=== PATIENT | male | born 1955 ===

== ENCOUNTER 2021-06-02 16:38 | Emergency (ER) | payer MEDICARE ==
[2021-06-02] MEDS ORDERED: SODIUM CHLORIDE 0.9% 500 ML 500 ML IV STA (16:57)
[2021-06-02 17:30] LABS: Basophils # (A) 0.1 k/uL (0-0.2); Basophils % (A) 1 %; Eosinophils # (A) 0.2 k/uL (0-0.7); Eosinophils % (A) 2 %; HCT 43.6 % (39.0-53.0); HGB 14.8 gm/dL (13.0-17.5); Lymphocytes # (A) 2.5 k/uL (1.0-4.8); Lymphocytes % (A) 24 %; MCH 32.8 pg (25.0-35.0); MCHC 34.1 g/dL (31.0-37.0); MCV 96.2 fL (80.0-100.0); Mean Platelet Volume 7.2; Monocytes # (A) 0.7 k/uL (0-1.0); Monocytes % (A) 7 %; Neutrophils # (A) 6.3 k/uL (1.3-7.7); Neutrophils % (A) 62 %; Platelet Count 223 k/uL (150-450); RBC 4.53 m/uL (4.30-5.90); RDW 12.1 % (11.5-15.5); WBC 10.2 k/uL (3.8-10.6)
--- NOTE | 2021-06-02 17:31 | ED ---
General Adult HPI - General Stated complaint: Possible Food Poison Time Seen by Provider: 06/02/21 16:52 Source: patient, family, EMS, RN notes reviewed, old records reviewed Limitations: language barrier - History of Present Illness Initial comments: 65-year-old male presenting with mushroom ingestion. This occurred approximately 4 hours prior to arrival. The history that I have at the time of presentation is that the patient was feeling dizzy and had eaten this mushroom 4 hours prior to arrival. This history was obtained from the paramedics. The mushroom had a white stalk and a brownish red. Patient does not speak [place] and the history is limited. He denies abdominal pain. Further history will be obtained when the daughters arrive. - Related Data Allergies Allergy/AdvReac Type Severity Reaction Status Date / Time No Known Allergies Allergy Verified 06/02/21 17:36 Review of Systems ROS Statement: Those systems with pertinent positive or pertinent negative responses have been documented in the HPI. ROS Other: All systems not noted in ROS Statement are negative. General Exam General appearance: alert, in no apparent distress Head exam: Present: atraumatic, normocephalic Eye exam: Present: normal appearance ENT exam: Present: normal exam, mucous membranes moist Neck exam: Present: normal inspection. Absent: tenderness Respiratory exam: Present: normal lung sounds bilaterally. Absent: respiratory distress, wheezes, rales Cardiovascular Exam: Present: regular rate, normal rhythm GI/Abdominal exam: Present: soft. Absent: distended, tenderness, guarding, rebound Extremities exam: Present: normal inspection, normal capillary refill. Absent: pedal edema Neurological exam: Present: alert, CN II-XII intact, other (No ataxia). Absent: motor sensory deficit Psychiatric exam: Absent: agitated, anxious Skin exam: Present: warm, dry, intact, normal color. Absent: cyanosis, diaphoretic Course Vital Signs 06/02/21 06/02/21 16:40 17:00 Temperature 97.8 F Pulse Rate 61 Pulse Rate [ 61 Rn Float ] Respiratory 20 Rate Blood Pressure 167/90 O2 Sat by Pulse 98 Oximetry - Reevaluation(s) Reevaluation #1: 06/02/21 17:10 Poison control has been contacted, awaiting recommendations EKG Findings - EKG Comments: EKG Findings:: Sinus bradycardia, rate of 58, CT interval 148, QRS duration 96, QTC [address] segment elevation. Medical Decision Making - Medical Decision Making Poison control recommending discharge with return parameters including GI issues. Patient's daughters are at bedside were both nurses and able to translate. The patient is feeling better. He will monitor symptoms at home and return as needed. - Lab Data Result diagrams: 06/02/21 17:18 06/02/21 17:18 Lab Results 06/02/21 06/02/21 06/02/21 Range/Units 17:18 17:18 17:18 WBC 10.2 (3.8-10.6) k/uL RBC 4.53 (4.30-5.90) m/uL Hgb 14.8 (13.0-17.5) gm/dL Hct 43.6 (39.0-53.0) % MCV 96.2 (80.0-100.0) fL MCH 32.8 (25.0-35.0) pg MCHC 34.1 (31.0-37.0) g/dL RDW 12.1 (11.5-15.5) % Plt Count 223 (150-450) k/uL MPV 7.2 Neutrophils % 62 % Lymphocytes % 24 % Monocytes % 7 % Eosinophils % 2 % Basophils % 1 % Neutrophils # 6.3 (1.3-7.7) k/uL Lymphocytes # 2.5 (1.0-4.8) k/uL Monocytes # 0.7 (0-1.0) k/uL Eosinophils # 0.2 (0-0.7) k/uL Basophils # 0.1 (0-0.2) k/uL PT 10.5 (9.0-12.0) sec INR 1.0 (<1.2) APTT 21.4 L (22.0-30.0) sec Sodium 138 (137-145) mmol/L Potassium 4.3 (3.5-5.1) mmol/L Chloride 104 (98-107) mmol/L Carbon Dioxide 25 (22-30) mmol/L Anion Gap 9 mmol/L BUN 20 (9-20) mg/dL Creatinine 0.82 (0.66-1.25) mg/dL Est GFR (CKD-EPI)AfAm >90 (>60 ml/min/1.73 sqM) Est GFR (CKD-EPI)NonAf >90 (>60 ml/min/1.73 sqM) Glucose 95 (74-99) mg/dL Calcium 9.4 (8.4-10.2) mg/dL Phosphorus 4.2 (2.5-4.5) mg/dL Magnesium 1.9 (1.6-2.3) mg/dL Total Bilirubin 0.6 (0.2-1.3) mg/dL AST 39 (17-59) U/L ALT 50 H (4-49) U/L Alkaline Phosphatase 80 (38-126) U/L Total Protein 7.4 (6.3-8.2) g/dL Albumin 4.3 (3.5-5.0) g/dL Salicylates <1.0 mg/dL Acetaminophen <10.0 ug/mL Serum Alcohol <10 mg/dL Disposition Clinical Impression: Mushrooms causing toxic effect Disposition: HOME SELF-CARE Condition: Good Instructions (If sedation given, give patient instructions): Adult Overdose (ED) Additional Instructions: Please return with worsening or changing symptoms, specifically gastrointestinal symptoms. Please also follow up with her primary care physician. Is patient prescribed a controlled substance at d/c from ED?: No Referrals: None,Stated [Primary Care Provider] - 1-2 days Time of Disposition: 18:12
[2021-06-02 17:44] LABS: ALT 50 U/L (4-49); AST 39 U/L (17-59); Acetaminophen <10.0 ug/mL; African American GFR (CKD) >90 (>60 ml/min/1.73 sqM); Albumin 4.3 g/dL (3.5-5.0); Alcohol <10 mg/dL; Alkaline Phosphatase 80 U/L (38-126); Anion Gap 9 mmol/L; Blood Urea Nitrogen 20 mg/dL (9-20); Calcium 9.4 mg/dL (8.4-10.2); Carbon Dioxide 25 mmol/L (22-30); Chloride 104 mmol/L (98-107); Glucose 95 mg/dL (74-99); Magnesium 1.9 mg/dL (1.6-2.3); Non-African American GFR(CKD) >90 (>60 ml/min/1.73 sqM); Phosphorus 4.2 mg/dL (2.5-4.5); Potassium 4.3 mmol/L (3.5-5.1); Salicylate <1.0 mg/dL; Sodium 138 mmol/L (137-145); Total Bilirubin 0.6 mg/dL (0.2-1.3); Total Protein 7.4 g/dL (6.3-8.2)
[2021-06-02 17:50] LABS: Prothrombin Time 10.5 sec (9.0-12.0)
[2021-06-02 17:51] LABS: Partial Thromboplastin Time 21.4 sec (22.0-30.0)
[2021-06-02 19:37] VITALS: BP 158/78; PULSE 64; RESP 16; TEMP 98.2
== END 2021-06-02 19:36 | disposition home or self-care (01) ==
LOC: EC 16:38
DX: T62.0X1A Toxic effect of ingested mushrooms, accidental (unintentional), initial encounter (principal)
CPT/HCPCS: 36415; 93005; 80053; 83735; 84100; 85025; 85610; 85730; 80143; 80179; 99284; 96360; G0480; 80320